=== PATIENT | male | born 1940 | race Caucasian/White ===

== ENCOUNTER 2018-10-02 18:43 | Inpatient (IN) ==
[2018-10-02 20:07] LABS: BASOPHILS % (AUTO) 0.9 % (0.2-1.0); EOSINOPHILS % (AUTO) 0.9 % (0.9-2.9); HEMATOCRIT 37.3 % (42.0-54.0); HEMOGLOBIN 12.5 g/dL (13.5-18.0); LYMPHOCYTES # (AUTO) 0.7 X10^3/uL (1.3-2.9); LYMPHOCYTES % (AUTO) 13.7 % (21.0-51.0); MEAN CORPUSCULAR HEMOGLOBIN 31.6 pg (27.0-34.0); MEAN CORPUSCULAR HGB CONC 33.6 g/dL (33.0-35.0); MEAN CORPUSCULAR VOLUME 94.1 fL (80.0-100.0); MEAN PLATELET VOLUME 8.9 fL (7.4-11.0); MONOCYTES # (AUTO) 0.6 x10^3/uL (0.3-0.8); MONOCYTES % (AUTO) 10.3 % (0.0-13.0); NEUTROPHILS % (AUTO) 74.2 % (42.0-75.0); PLATELET COUNT 167 X10^3/uL (150.0-450.0); RED BLOOD COUNT 3.96 X10^6/uL (4.7-6.0); RED CELL DISTRIBUTION WIDTH 15.3 % (11.6-16.5); WHITE BLOOD COUNT 5.4 X10^3/uL (3.6-10.0)
[2018-10-02 20:14] LABS: ALBUMIN 3.2 g/dL (3.4-5.0); CALCIUM 9.2 mg/dL (8.5-10.1); COR CA(FOR HYPOALB) 9.8 mg/dL (8.5-10.1); CREATININE 1.65 mg/dL (0.70-1.30); TOTAL PROTEIN 7.2 g/dL (6.4-8.2)
[2018-10-02 20:19] LABS: CARBON DIOXIDE 43.6 mmol/L (21-32)
[2018-10-02] MEDS ORDERED: GLUCOPHAGE XR PO SCH (21:00)
[2018-10-02] MEDS ORDERED: GLUCOPHAGE XR PO ONE (21:14)
[2018-10-02] MEDS: LASIX IVP SCH (21:19)
[2018-10-02] MEDS: AMBIEN PO PRN (21:22)
[2018-10-02] MEDS: COREG TAB 6.25 MG PO SCH (21:22)
[2018-10-02] MEDS: REQUIP PO SCH (21:22)
[2018-10-02] MEDS: SNACK - Diabetic Appropriate PO SCH (21:23)
[2018-10-02] MEDS: NS 1000 ML 1,000 ML IV SCH (21:24)
[2018-10-02 21:57] VITALS: BMI 30.5
--- NOTE | 2018-10-02 22:49 | RAD ---
HISTORY: Dyspnea Study: Two views of the chest Comparison: June 24, 2018 Findings: The trachea is midline. The cardiac silhouette is enlarged with pulmonary vascular congestion. Right basilar atelectasis and/or infiltrate with associated right-sided pleural effusion are again demonstrated. The pleural effusion appears to have slightly increased in size since prior exam. The aorta is partially calcified and tortuous. IMPRESSION: Cardiomegaly with pulmonary vascular congestion. Right basilar atelectasis and/or infiltrate with associated right-sided pleural effusion which has slightly increased in size since prior exam. Reported By:
[2018-10-02] MEDS: ROBITUSSIN CF SYRUP PO PRN (22:52)
[2018-10-02] MEDS: NICOTINE PATCH TD SCH (22:52)
--- NOTE | 2018-10-02 23:23 | RAD ---
HISTORY: Orthopnea Study: Three views of the abdomen Comparison: None Findings: Evaluation of the abdomen demonstrates a nonspecific bowel gas pattern. Multiple air-filled loops of bowel are noted. These findings are nonspecific but may be seen with enteritis or perhaps developing ileus. Scattered stool and gas are seen within the visualized colon. Surgical clips project over the right upper quadrant of the abdomen. If symptoms persist recommend continued follow-up for further evaluation. IMPRESSION: 1. Overall nonspecific bowel gas pattern as discussed above. Reported By:
[2018-10-03 06:22] LABS: HEMOGLOBIN A1C 9.5 %
[2018-10-03 06:44] LABS: ALBUMIN 2.8 g/dL (3.4-5.0); CALCIUM 8.5 mg/dL (8.5-10.1); CARBON DIOXIDE 39.8 mmol/L (21-32); CHOL/HDL RATIO 2.7 (0.0-5.0); COR CA(FOR HYPOALB) 9.5 mg/dL (8.5-10.1); CREATININE 1.74 mg/dL (0.70-1.30); TOTAL PROTEIN 6.3 g/dL (6.4-8.2)
[2018-10-03 06:50] LABS: BASOPHILS % (AUTO) 0.8 % (0.2-1.0); EOSINOPHILS % (AUTO) 0.8 % (0.9-2.9); HEMATOCRIT 33.4 % (42.0-54.0); HEMOGLOBIN 11.1 g/dL (13.5-18.0); LYMPHOCYTES # (AUTO) 0.8 X10^3/uL (1.3-2.9); LYMPHOCYTES % (AUTO) 16.8 % (21.0-51.0); MEAN CORPUSCULAR HEMOGLOBIN 31.3 pg (27.0-34.0); MEAN CORPUSCULAR HGB CONC 33.2 g/dL (33.0-35.0); MEAN CORPUSCULAR VOLUME 94.3 fL (80.0-100.0); MEAN PLATELET VOLUME 9.4 fL (7.4-11.0); MONOCYTES # (AUTO) 0.6 x10^3/uL (0.3-0.8); MONOCYTES % (AUTO) 12.2 % (0.0-13.0); NEUTROPHILS # (AUTO) 3.2 x10^3/uL (2.2-4.8); NEUTROPHILS % (AUTO) 69.4 % (42.0-75.0); PLATELET COUNT 147 X10^3/uL (150.0-450.0); RED BLOOD COUNT 3.54 X10^6/uL (4.7-6.0); RED CELL DISTRIBUTION WIDTH 15.3 % (11.6-16.5); WHITE BLOOD COUNT 4.6 X10^3/uL (3.6-10.0)
[2018-10-03] MEDS: PULMICORT NEB TX 0.5 MG NEB SCH ×2 (08:35→20:35)
[2018-10-03] MEDS ORDERED: PROVENTIL NEB TX 0.083% 2.5MG/ 3ML NEB SCH (09:00)
[2018-10-03] MEDS ORDERED: GLUCOPHAGE XR PO SCH (09:00)
[2018-10-03] MEDS ORDERED: ZESTRIL TAB 5 MG PO SCH (09:00)
[2018-10-03] MEDS: INVOKANA PO SCH (09:22)
[2018-10-03] MEDS: NICOTINE PATCH TD SCH (09:22)
[2018-10-03] MEDS: JANUVIA PO SCH (09:22)
[2018-10-03] MEDS: LASIX IVP SCH (09:22)
[2018-10-03] MEDS: COREG TAB 6.25 MG PO SCH ×3 (09:22→20:48)
[2018-10-03] MEDS ORDERED: XOPENEX 1.25 MG/3 ML NEBULE NEB SCH (10:15)
[2018-10-03] MEDS: NEURONTIN CAP 300 MG PO SCH ×2 (10:37→20:49)
[2018-10-03] MEDS: ASPIRIN PO SCH (10:37)
[2018-10-03] MEDS: K-DUR TAB 20 MEQ PO SCH ×2 (10:37→20:49)
[2018-10-03] MEDS: ALBUMIN HUMAN 25%- 100 ML 100 ML IV SCH (10:38)
[2018-10-03] MEDS ORDERED: Atrovent NEB TX 0.02% NEB SCH (13:00)
[2018-10-03] MEDS: ZOFRAN INJ 4 MG VIAL IVP PRN (13:18)
--- NOTE | 2018-10-03 15:23 | VAS ---
Exam: Bilateral lower extremity venous ultrasound History: 78-year-old male with bilateral lower extremity leg swelling. Comparison: Previous bilateral lower extremity venous ultrasound from 06/30/2018 Findings: Ultrasound evaluation of the deep venous system of both legs was performed from the level of the inguinal ligament down to the calf. On both sides, the deep system is widely patent with good flow and compressibility noted throughout their course. No sign of intraluminal thrombus in either leg. Impression: No deep vein thrombosis is seen in either lower extremity. Reported By:
[2018-10-03] MEDS: Atrovent NEB TX 0.02% NEB SCH ×2 (15:54→20:35)
[2018-10-03] MEDS: XOPENEX 1.25 MG/3 ML NEBULE NEB SCH ×2 (15:54→20:35)
[2018-10-03] MEDS ORDERED: ULTRAM ONE (16:30)
[2018-10-03] MEDS: ULTRAM PO PRN (16:33)
[2018-10-03 18:13] LABS: BILIRUBIN,URINE NEGATIVE (NEGATIVE); BLOOD/HEMOGLOBIN,URINE NEGATIVE (NEGATIVE); GLUCOSE, URINE 1+ (NEGATIVE); KETONES,URINE NEGATIVE (NEGATIVE); LEUKOCYTE ESTERASE ,URINE NEGATIVE (NEGATIVE); NITRITES,URINE NEGATIVE (NEGATIVE); PROTEIN,URINE 1+ (NEGATIVE); UROBILINOGEN,URINE NORMAL (NORMAL)
[2018-10-03 18:14] LABS: APPEARANCE,URINE HAZY (CLEAR); COLOR,URINE YELLOW (YELLOW)
[2018-10-03 18:18] LABS: AMORPHOUS SEDIMENT,UR 1+ /HPF (NEGATIVE); BACTERIA,URINE TRACE /HPF (NEGATIVE); RBC,URINE NONE SEEN /HPF (NONE SEEN); SQUAMOUS EPITHELIAL CELL,UR FEW /HPF (NEGATIVE)
[2018-10-03] MEDS ORDERED: SNACK - Diabetic Appropriate PO SCH (20:00)
[2018-10-03] MEDS: AMBIEN PO PRN (20:48)
[2018-10-03] MEDS: REQUIP PO SCH (20:49)
[2018-10-03] MEDS: SNACK - Diabetic Appropriate PO SCH (20:49)
[2018-10-03] MEDS ORDERED: TIOTROPIUM BROMIDE IN SCH (21:00)
[2018-10-03] MEDS ORDERED: LASIX IVP SCH (21:00)
[2018-10-03] MEDS ORDERED: COREG TAB 12.5 MG PO SCH (21:00)
[2018-10-03] MEDS ORDERED: NS IRRIGATION 500 ML IR ONE (21:36)
[2018-10-04] MEDS: XOPENEX 1.25 MG/3 ML NEBULE NEB SCH ×4 (03:56→20:21)
[2018-10-04] MEDS: Atrovent NEB TX 0.02% NEB SCH ×4 (03:57→20:21)
[2018-10-04 05:26] LABS: BASOPHILS % (AUTO) 0.8 % (0.2-1.0); EOSINOPHILS % (AUTO) 0.1 % (0.9-2.9); HEMOGLOBIN 10.9 g/dL (13.5-18.0); LYMPHOCYTES # (AUTO) 0.6 X10^3/uL (1.3-2.9); LYMPHOCYTES % (AUTO) 9.8 % (21.0-51.0); MEAN CORPUSCULAR HEMOGLOBIN 31.1 pg (27.0-34.0); MEAN CORPUSCULAR HGB CONC 32.9 g/dL (33.0-35.0); MEAN CORPUSCULAR VOLUME 94.4 fL (80.0-100.0); MEAN PLATELET VOLUME 9.6 fL (7.4-11.0); MONOCYTES # (AUTO) 0.5 x10^3/uL (0.3-0.8); MONOCYTES % (AUTO) 8.9 % (0.0-13.0); NEUTROPHILS # (AUTO) 4.9 x10^3/uL (2.2-4.8); NEUTROPHILS % (AUTO) 80.4 % (42.0-75.0); PLATELET COUNT 111 X10^3/uL (150.0-450.0); RED BLOOD COUNT 3.49 X10^6/uL (4.7-6.0); RED CELL DISTRIBUTION WIDTH 15.2 % (11.6-16.5); WHITE BLOOD COUNT 6.1 X10^3/uL (3.6-10.0)
[2018-10-04 05:45] LABS: CALCIUM 8.4 mg/dL (8.5-10.1); CARBON DIOXIDE 34.3 mmol/L (21-32); COR CA(FOR HYPOALB) 9.2 mg/dL (8.5-10.1); CREATININE 2.83 mg/dL (0.70-1.30); TOTAL PROTEIN 6.1 g/dL (6.4-8.2)
[2018-10-04] MEDS ORDERED: NS 500 ML IV 500 ML IV ONE ×4 (08:00→14:47)
[2018-10-04] MEDS: PULMICORT NEB TX 0.5 MG NEB SCH ×2 (08:24→20:21)
[2018-10-04] MEDS ORDERED: JANUVIA PO SCH (09:00)
[2018-10-04] MEDS: NEURONTIN CAP 300 MG PO SCH ×2 (10:19→21:12)
[2018-10-04] MEDS: JANUVIA PO SCH (10:20)
[2018-10-04] MEDS: ASPIRIN PO SCH (10:20)
[2018-10-04] MEDS: NICOTINE PATCH TD SCH (10:20)
[2018-10-04] MEDS: ALBUMIN HUMAN 25%- 100 ML 100 ML IV SCH (10:21)
[2018-10-04] MEDS: CITROMA PO ONE ×2 (10:30→10:32)
[2018-10-04] MEDS: COREG TAB 6.25 MG PO SCH ×2 (10:32→21:13)
[2018-10-04] MEDS: K-DUR TAB 20 MEQ PO SCH (10:50)
[2018-10-04] MEDS: LANOXIN PO SCH (10:50)
[2018-10-04] MEDS: INVOKANA PO SCH (10:51)
[2018-10-04] MEDS: COLACE CAP 100 MG PO SCH ×2 (10:53→21:14)
[2018-10-04] MEDS: ZOFRAN INJ 4 MG VIAL IVP PRN (11:00)
[2018-10-04] MEDS: NS 1000 ML 1,000 ML IV SCH ×2 (11:21→21:14)
--- NOTE | 2018-10-04 11:58 | CT ---
HISTORY: Proximal nocturnal dyspnea, orthopnea, and hypoxia. Study: CT chest without contrast Comparison: Chest x-ray dated October 02, 2018 and CTA chest dated March 19, 2018. Technique: Multiple axial images of the chest were obtained from the thoracic inlet to the upper abdomen without the administration of IV contrast. MIP images were obtained. Dose reduction techniques including Automated Exposure Control (AEC) and adjustment of mA and kV were utilized. Study limited secondary to lack of IV contrast. Findings: The mediastinum does not demonstrate significant pathological lymphadenopathy. There is no paracardial effusion observed. The thoracic aorta is normal in its contour without evidence for aneurysmal dilatation. Cardiomegaly. Coronary artery and thoracic aortic calcifications are again seen. Prominent main and bilateral pulmonary arteries likely representing underlying pulmonary hypertension. Large right pleural effusion with associated compressive atelectasis versus infiltrate. 5 mm right upper lobe pulmonary nodule (series 3, image 26) appears unchanged given technique. Previously seen 7 mm right upper lobe pulmonary nodule is not well appreciated on today's exam. No obvious new pulmonary nodules, mass, or pneumothorax. The upper abdominal structures appear unchanged given technique. Mild anasarca. Degenerative changes of the spine. No aggressive osseous lesions. IMPRESSION: 1. Constellation of findings which may represent pulmonary edema secondary to congestive heart failure. Underlying infiltrate not entirely excluded. 2. Other chronic findings as above. Reported By:
[2018-10-04] MEDS ORDERED: CONSULT PHARMACY - ANTIBIOTIC XX SCH (13:00)
[2018-10-04] MEDS ORDERED: PHARMACY CONSULT - VANCOMYCIN XX SCH (13:00)
[2018-10-04] MEDS: MERREM VIAL IVP SCH ×2 (14:48→21:15)
[2018-10-04] MEDS: ROBITUSSIN CF SYRUP PO PRN (14:54)
[2018-10-04] MEDS ORDERED: NS 250 ML IV 250 ML IV ONE (15:03)
[2018-10-04] MEDS ORDERED: VANCOMYCIN HCL 500 MG VIAL ONE (15:03)
[2018-10-04] MEDS ORDERED: VANCOMYCIN HCL 1 GM VIAL ONE (15:04)
[2018-10-04] MEDS: VANCOMYCIN HCL 500 MG VIAL 250 MG, VANCOMYCIN HCL 1 GM VIAL 1 G in D5W 250 ML IV 250 ML IV SCH (15:28)
[2018-10-04] MEDS: REQUIP PO SCH (21:12)
[2018-10-04] MEDS: SNACK - Diabetic Appropriate PO SCH (21:12)
[2018-10-04] MEDS: ULTRAM PO PRN (21:17)
[2018-10-05 00:17] LABS: CALCIUM 8.2 mg/dL (8.5-10.1); CARBON DIOXIDE 39.3 mmol/L (21-32); CREATININE 3.66 mg/dL (0.70-1.30)
[2018-10-05 02:47] LABS: BILIRUBIN,URINE 1+ (NEGATIVE); BLOOD/HEMOGLOBIN,URINE 5+ (NEGATIVE); GLUCOSE, URINE 1+ (NEGATIVE); KETONES,URINE 2+ (NEGATIVE); LEUKOCYTE ESTERASE ,URINE 2+ (NEGATIVE); NITRITES,URINE POSITIVE (NEGATIVE); PROTEIN,URINE 3+ (NEGATIVE); UROBILINOGEN,URINE 2+ (NORMAL)
[2018-10-05 02:54] LABS: APPEARANCE,URINE TURBID (CLEAR); COLOR,URINE ORANGE (YELLOW)
[2018-10-05 02:56] LABS: AMORPHOUS SEDIMENT,UR 3+ /HPF (NEGATIVE); BACTERIA,URINE TRACE /HPF (NEGATIVE); RBC,URINE TNTC /HPF (NONE SEEN); SQUAMOUS EPITHELIAL CELL,UR RARE /HPF (NEGATIVE)
[2018-10-05] MEDS: NS 1000 ML 1,000 ML IV SCH ×4 (03:11→22:06)
[2018-10-05] MEDS: XOPENEX 1.25 MG/3 ML NEBULE NEB SCH ×4 (03:50→17:11)
[2018-10-05] MEDS: Atrovent NEB TX 0.02% NEB SCH ×4 (03:50→17:11)
[2018-10-05 06:52] LABS: BASOPHILS % (AUTO) 0.4 % (0.2-1.0); EOSINOPHILS % (AUTO) 0.2 % (0.9-2.9); HEMOGLOBIN 10.5 g/dL (13.5-18.0); LYMPHOCYTES # (AUTO) 0.5 X10^3/uL (1.3-2.9); MEAN CORPUSCULAR HEMOGLOBIN 31.1 pg (27.0-34.0); MEAN CORPUSCULAR HGB CONC 32.8 g/dL (33.0-35.0); MEAN CORPUSCULAR VOLUME 94.9 fL (80.0-100.0); MEAN PLATELET VOLUME 9.8 fL (7.4-11.0); MONOCYTES # (AUTO) 0.3 x10^3/uL (0.3-0.8); NEUTROPHILS # (AUTO) 3.2 x10^3/uL (2.2-4.8); NEUTROPHILS % (AUTO) 78.4 % (42.0-75.0); PLATELET COUNT 130 X10^3/uL (150.0-450.0); RED BLOOD COUNT 3.37 X10^6/uL (4.7-6.0); RED CELL DISTRIBUTION WIDTH 15.4 % (11.6-16.5); WHITE BLOOD COUNT 4.1 X10^3/uL (3.6-10.0)
[2018-10-05 07:05] LABS: CALCIUM 8.4 mg/dL (8.5-10.1); CARBON DIOXIDE 31.7 mmol/L (21-32); CREATININE 3.67 mg/dL (0.70-1.30)
[2018-10-05] MEDS: MERREM VIAL IVP SCH ×2 (08:59→20:26)
[2018-10-05] MEDS: NEURONTIN CAP 300 MG PO SCH ×2 (09:00→20:27)
[2018-10-05] MEDS: JANUVIA PO SCH (09:00)
[2018-10-05] MEDS: LANOXIN PO SCH (09:01)
[2018-10-05] MEDS: ASPIRIN PO SCH (09:01)
[2018-10-05] MEDS: COREG TAB 6.25 MG PO SCH ×2 (09:02→20:25)
[2018-10-05] MEDS: NICOTINE PATCH TD SCH (09:03)
[2018-10-05] MEDS: COLACE CAP 100 MG PO SCH ×2 (09:03→20:26)
[2018-10-05] MEDS: ALBUMIN HUMAN 25%- 100 ML 100 ML IV SCH (09:06)
[2018-10-05] MEDS: K-DUR TAB 20 MEQ PO SCH ×2 (09:22→20:26)
[2018-10-05] MEDS ORDERED: NS 500 ML IV 500 ML IV ONE (09:24)
[2018-10-05] MEDS: INVOKANA PO SCH (09:52)
[2018-10-05] MEDS: VANCOMYCIN HCL 500 MG VIAL 250 MG, VANCOMYCIN HCL 1 GM VIAL 1 G in D5W 250 ML IV 250 ML IV SCH (10:16)
[2018-10-05] MEDS: PULMICORT NEB TX 0.5 MG NEB SCH ×2 (16:00→20:15)
[2018-10-05 18:09] LABS: CALCIUM 8.2 mg/dL (8.5-10.1); CARBON DIOXIDE 34.1 mmol/L (21-32); CREATININE 4.03 mg/dL (0.70-1.30)
[2018-10-05] MEDS: SNACK - Diabetic Appropriate PO SCH (20:12)
[2018-10-05] MEDS: REQUIP PO SCH (20:27)
[2018-10-05] MEDS: ULTRAM PO PRN (20:27)
[2018-10-05] MEDS ORDERED: NS IRRIGATION 500 ML IR ONE (21:24)
[2018-10-06] MEDS: XOPENEX 1.25 MG/3 ML NEBULE NEB SCH ×2 (00:58→06:07)
[2018-10-06] MEDS: Atrovent NEB TX 0.02% NEB SCH ×2 (00:58→06:07)
[2018-10-06] MEDS: NS 1000 ML 1,000 ML IV SCH ×2 (01:31→05:44)
[2018-10-06] MEDS ORDERED: RESTORIL CAP 15 MG PO ONE ×2 (02:43→02:48)
[2018-10-06 07:06] LABS: ALBUMIN 3.1 g/dL (3.4-5.0); CALCIUM 7.8 mg/dL (8.5-10.1); CARBON DIOXIDE 29.7 mmol/L (21-32); COR CA(FOR HYPOALB) 8.5 mg/dL (8.5-10.1); CREATININE 4.28 mg/dL (0.70-1.30); TOTAL PROTEIN 5.8 g/dL (6.4-8.2)
[2018-10-06 07:38] LABS: BASOPHILS # (AUTO) 0.1 X10^3/uL (0.0-0.1); BASOPHILS % (AUTO) 0.9 % (0.2-1.0); EOSINOPHILS % (AUTO) 0.1 % (0.9-2.9); HEMATOCRIT 31.8 % (42.0-54.0); HEMOGLOBIN 10.3 g/dL (13.5-18.0); LYMPHOCYTES # (AUTO) 0.9 X10^3/uL (1.3-2.9); LYMPHOCYTES % (AUTO) 13.5 % (21.0-51.0); MEAN CORPUSCULAR HGB CONC 32.4 g/dL (33.0-35.0); MEAN CORPUSCULAR VOLUME 95.7 fL (80.0-100.0); MEAN PLATELET VOLUME 10.3 fL (7.4-11.0); MONOCYTES # (AUTO) 0.6 x10^3/uL (0.3-0.8); MONOCYTES % (AUTO) 10.2 % (0.0-13.0); NEUTROPHILS # (AUTO) 4.8 x10^3/uL (2.2-4.8); NEUTROPHILS % (AUTO) 75.3 % (42.0-75.0); PLATELET COUNT 128 X10^3/uL (150.0-450.0); RED BLOOD COUNT 3.32 X10^6/uL (4.7-6.0); RED CELL DISTRIBUTION WIDTH 15.5 % (11.6-16.5); WHITE BLOOD COUNT 6.4 X10^3/uL (3.6-10.0)
[2018-10-06 08:23] LABS: PLATELET MORPHOLOGY COMMENT NORMAL (NORMAL)
[2018-10-06] MEDS ORDERED: HumuLIN R SUBCUT PRN (08:42)
[2018-10-06] MEDS: NICOTINE PATCH TD SCH (09:14)
[2018-10-06] MEDS: MERREM VIAL IVP SCH (09:14)
[2018-10-06] MEDS: NEURONTIN CAP 300 MG PO SCH (09:16)
[2018-10-06] MEDS: ASPIRIN PO SCH (09:16)
[2018-10-06] MEDS: LANOXIN PO SCH (09:16)
[2018-10-06] MEDS: COREG TAB 6.25 MG PO SCH (09:17)
[2018-10-06] MEDS: K-DUR TAB 20 MEQ PO SCH (09:17)
[2018-10-06] MEDS: COLACE CAP 100 MG PO SCH (09:17)
[2018-10-06] MEDS: VANCOMYCIN HCL 500 MG VIAL 250 MG, VANCOMYCIN HCL 1 GM VIAL 1 G in D5W 250 ML IV 250 ML IV SCH (09:25)
[2018-10-06] MEDS: PULMICORT NEB TX 0.5 MG NEB SCH (09:30)
--- NOTE | 2018-10-06 09:55 | RAD ---
HISTORY: Shortness of breath nocturnal dyspnea orthopnea hypoxia Study: One-view chest Comparison: Chest CT 10/04/2018 and two-view chest 10/02/2018. Technique: AP portable chest Findings: EKG leads overlie the thorax. Bone detail and soft tissues are normal. Heart is enlarged but stable unchanged from the film of 10/02/2018. Pleural effusion and atelectasis are unchanged in the right lung base compared to the CT scan of 10 04 and the chest film of 10 02. IMPRESSION: No change in the right pleural effusion passive atelectasis cardiomegaly and vascular congestion with peribronchial cuffing most consistent with CHF without change from 10/[address] scan of 10/04/2018. 1. Reported By:
[2018-10-06] MEDS ORDERED: NS 500 ML IV 300 ML IV STA (10:23)
[2018-10-06 10:34] LABS: ABG BASE EXCESS 3.5 mmol/L (-2.0-2.0)
[2018-10-06 10:36] LABS: ABG ALLEN TEST POS; ABG HCO3 34.4 mmol/L (22-26)
[2018-10-06] MEDS ORDERED: ROCEPHIN VIAL 1 GRAM IVP SCH (11:30)
[2018-10-06] MEDS ORDERED: QUELICIN (OR ANECTINE) ONE (12:00)
--- NOTE | 2018-10-06 12:26 | RAD ---
HISTORY: Endotracheal tube placement Study: Single-view chest Comparison: 10/06/2018 at 9:34 a.m.. Findings: Endotracheal tube is in place with the tip the level of the aortic arch. Trachea is midline. There is cardiac increasing bibasilar foci of atelectasis, infiltrate or pleural fluid is seen. Increased interstitial markings are noted bilaterally, again compatible with CHF. Pneumothorax is seen. Osseous structures are intact. IMPRESSION: Satisfactory placement of endotracheal tube with the tip at the level of the aortic arch. Cardiomegaly, signs of CHF with increasing bibasilar foci of edema, infiltrate or effusion. Reported By:
[2018-10-06 12:29] LABS: TROPONIN I 0.07 ng/mL (0-1.5)
[2018-10-06 12:32] LABS: CKMB % 5.3 % (<4); CREATINE KINASE MB 4.1 ng/mL (0-4.0)
[2018-10-06 12:58] VITALS: BP 73/37
[2018-10-06] MEDS ORDERED: VERSED 100 MG in NS 100 ML IV 80 ML IV SCH (13:00)
[2018-10-06] MEDS ORDERED: SNACK - Diabetic Appropriate PO SCH (20:00)
[2018-10-07] MEDS ORDERED: PHARMACY COMMENT IV NR (08:30)
== END 2018-10-06 13:13 | disposition short-term general hospital (02) | DRG 292 ==
LOC: MED/SURG → ICU 10-04 12:48
PROVIDERS: ADMIT Obstetrics & Gynecology Obstetrics; ATTEND Obstetrics & Gynecology Obstetrics
DX: R06.01 Orthopnea; J90 Pleural effusion, not elsewhere classified; I50.30 Unspecified diastolic (congestive) heart failure; R06.09 Other forms of dyspnea; R94.4 Abnormal results of kidney function studies; R41.82 Altered mental status, unspecified; R53.1 Weakness; T50.1X5A Adverse effect of loop [high-ceiling] diuretics, initial encounter; N39.0 Urinary tract infection, site not specified; R06.03 Acute respiratory distress; N17.8 Other acute kidney failure; I95.89 Other hypotension; R60.0 Localized edema; G47.39 Other sleep apnea
CPT/HCPCS: 36415; 36600; 71010; 71020; 71045; 71046; 71250; 74000; 74018; 80048; 80053; 80061; 80162; 81001; 82550; 82553; 82803; 83036; 83605; 84484; 85025; 87040; 87086; 93005; 93970; 94640; 94760; A4222; P9047; G0378; J1940; J2185; J2405; J3370; J7030; J7040; J7060; J7613; J7626; J7644